=== PATIENT | female | born 1945 | race Caucasian/White ===

== ENCOUNTER 2023-06-15 19:17 | Emergency (ER) | payer MEDICARE, OTHER, SELFPAY ==
[2023-06-15 19:22] VITALS: BP 121/71
--- NOTE | 2023-06-15 20:01 | ED.SKININJ ---
HPI-Injury
General
Chief Complaint: Musculo-Skeletal Complaint
Source: patient
Exam Limitations: none
Time Seen by Provider: 06/15/23 20:01
Nursing documentation reviewed up to this point in time: agreed with
Travel History
Have you had any contact with someone who has COVID-19?: No
Do you have any symptoms of coronavirus? Fever > 100 degrees, chills, cough, shortness of breath, sore throat, loss of taste or smell, muscle aches, or headache?: No
History of Present Illness-Injury
Initial Injury comments:
78-year-old female cut the pad of her left index finger with a knife about 2 hours ago at home. She went to urgent care they sent her here. Her tetanus immunization is up-to-date
Past History
Past History
ED Past Medical History: HTN and Hypercholesterolemia
ED Past Surgical History: Orthopedic and Tonsilectomy
Social History
Tobacco: Non-smoker
Alcohol: None
Drug: None
Personal:
Living: with family
Review of Systems
Review of Systems
Allergies reviewed?: Yes
All Other Systems: ROS reviewed and negative except as documented in HPI and ROS
Skin: Reports other (Laceration left index finger pad)
Skin Exam
Laceration
Left index finger pad:
Length in cm: 1
Orientation: horizontal
Type of Laceration: simple
Any active bleeding?: low grade venous oozing
Distal skin color and temperature: normal-warm & good color
Normal distal neurovascular exam: Yes
Range of motion: full
Phy Exam
Physical Exam
Physical Exam:
PHYSICAL EXAMINATION:
General: no apparent distress, not acutely ill
Neuro: alert and oriented.
Psychiatric: well kept. interactive and cooperative
Musculoskeletal: Moves with ease
Skin: Warm, pink.
Course
Vital Signs
Initial and Last Documented VS:
Initial Vital Signs
Temp Pulse Resp BP Pulse Ox
98.3 F 72 16 121/71 97
06/15/23 19:22 06/15/23 19:22 06/15/23 19:22 06/15/23 19:22 06/15/23 19:22
Last Documented Vital Signs
Temp Pulse Resp BP Pulse Ox
98.3 F 72 16 121/71 97
06/15/23 19:22 06/15/23 19:22 06/15/23 19:22 06/15/23 19:22 06/15/23 19:22
Procedures
Laceration Closure
Left index finger pad:
Status of Wound: clean
Size of Wound in cm: 1
Description of Wound Edges: sharp
Preparation: cleaned with saline
Type of Closure: Dermabond-skin glue (Band-Aid and aluminum fingertip splint applied)
MDM/Problems Addressed
MDM/Problems Addressed:
78-year-old female cut the pad of her left index finger with a knife about 2 hours ago at home. She went to urgent care they sent her here. Her tetanus immunization is up-to-date
*Critical Care Note
Total Time (30-74mins, 75-104mins- exclusive of procedures): Not Applicable
ED Attending Note
-
Portions of this chart may have been created with voice recognition software.� Occasional wrong word or��sound alike� substitutions may have occurred due to the inherent limitations of voice recognition software.
Discharge Plan
Departure
Patient Disposition: Home (Routine Discharge)
Date of Disposition: 06/15/23
Time of Disposition: 20:25
Patient with high blood pressure during this ER visit?: No
Condition: Good
Discharge Problem:
Laceration of left index finger
Instructions: Laceration Repair With Glue ED
Prescriptions:
No Action
atorvastatin 10 MG tablet
10 mg PO MOWEFR
biotin 300 MCG tablet
1,200 mcg PO DAILY
niacinamide [Niacin (niacinamide)] 500 MG tablet
500 mg PO BID
atenolol 50 MG tablet
50 mg PO DAILY
coenzyme Q10 [Co Q-10] 200 MG capsule
200 mg PO DAILY
omega 2-bya-slt-fish oil [Fish Oil] 1 EACH capsule
1,000 mg PO DAILY
hydrochlorothiazide 25 MG tablet
25 mg PO DAILY
calcium carb-D3-mag ox-zinc ox [Mihai Mag Zinc Plus D3] 1 EACH tablet
1 tab PO DAILY
melatonin 3 MG tablet
3 mg PO HSPRN PRN (Reason: SLEEP)
acetaminophen [Tylenol Extra Strength] 500 MG tablet
1,000 mg PO QPMPRN PRN (Reason: ARTHRITIS)
acetaminophen [Tylenol Extra Strength] 500 MG tablet
1,000 mg PO DAILY
diphenhydramine HCl [Banophen] 25 MG capsule
25 mg PO HSPRN PRN (Reason: SLEEP)
docusate sodium 100 MG capsule
200 mg PO QPMPRN PRN (Reason: CONTIPATION)
budesonide 9 MG tablet,delayed and ext.release
9 mg PO DAILY
Patient Comments:
12/20/2019-PATIENT ON DECREASE DOSING, 3 CAPSULES (TOTAL 9MG) FOR 30DAY THEN 2 CAPSULES (TOTAL 6MG) FOR 2 WEEK
Referrals:
Vandana Gr MD [Family Provider] - As needed
Activity Restrictions/Additional Instructions:
As we discussed, it takes about 2 weeks for this area to heal. You may briefly wet the area in the shower. Change the Band-Aid daily and as needed. Use the aluminum fingertip splint as needed for protection. The glue should slough off in about 2
weeks
Interventions
Interventions:
*Risk Screen - Suicide Last Done: 06/15/23 19:20
*General Assessment Last Done: 06/15/23 19:20
*Neglect/Abuse Screening Last Done: 06/15/23 19:20
ED- Fall Risk Assessment Last Done: 06/15/23 19:50
*ED COVID-19 Vaccine History Last Done: 06/15/23 19:50
*Nursing Disposition Last Done: 06/15/23 20:32
ED-Musculoskeletal Assessment Last Done: 06/15/23 19:50
Discharge Date and Time
Discharge Date/Time: 06/15/23 20:33
== END 2023-06-15 20:33 | disposition home or self-care (01) ==
LOC: EMR 19:17
PROVIDERS: EMERGENCY PHYSICIAN Emergency Medicine; FAMILY PHYSICIAN Internal Medicine
DX: S61.211A Laceration without foreign body of left index finger without damage to nail, initial encounter (principal); W26.0XXA Contact with knife, initial encounter; I10 Essential (primary) hypertension
CPT/HCPCS: 99282; 12001